=== PATIENT | male | born 1990 | race African-American/Black ===

== ENCOUNTER 2017-09-15 17:52 | Emergency (ER) | payer OTHER ==
[2017-09-15 18:04] VITALS: BP 134/71
[2017-09-15] MEDS ORDERED: IBUPROFEN 800 MG TABLET PO STA (18:33)
[2017-09-15] MEDS ORDERED: ONDANSETRON ODT 4 MG TABLET TL STA (18:33)
[2017-09-15] MEDS ORDERED: ONDANSETRON ODT 4 MG TABLET ONE (18:41)
[2017-09-15] MEDS ORDERED: IBUPROFEN 800 MG TABLET PO ONE (18:42)
--- NOTE | 2017-09-15 18:49 | ED Physician Documentation ---
PD HPI URI - Stated complaint Stated Complaint: HOT/COLD/SHAKES - Chief complaint Chief Complaint: General - History obtained from History obtained from: Patient - History of Present Illness Timing - onset: Today Timing duration: Days (1) Timing details: Gradual onset Pain level max: 0 Pain level now: 0 Associated symptoms: Fever (subjective), Chills, Nasal congestion, Rhinorrhea, Sore throat, Dry cough, Other (felt lightheaded earlier today. Also felt nauseated) Contributing factors: Sick contact. No: Travel, Immunocompromised, Unimmunized , COPD / asthma Improves by: Rest Worsened by: Activity, Breathing - Additional information Additional information: also states nausea today. no abd pain. no vomiting. no diarrhea. no headache. Review of Systems Nose: reports: Rhinorrhea / runny nose, Congestion GI: denies: Vomiting Skin: denies: Rash Musculoskeletal: denies: Neck pain, Back pain Neurologic: denies: Headache PD PAST MEDICAL HISTORY - Past Medical History Past Medical History: No - Past Surgical History Past Surgical History: Yes Ortho: Other - Present Medications Home Medications: Ambulatory Orders Medication Instructions Recorded Confirmed Benzonatate [Tessalon Perle] 100 - 200 mg PO TID PRN #30 capsule 09/15/17 Cetirizine HCl/Pseudoephedrine 1 each PO BID PRN #30 tab.er.12h 09/15/17 [Zyrtec-D Tablet] Ondansetron Odt [Zofran] 4 mg TL Q6H PRN #10 tablet 09/15/17 - Allergies Allergies/Adverse Reactions: Allergies Allergy/AdvReac Type Severity Reaction Status Date / Time No Known Drug Allergies Allergy Verified 09/15/17 18:02 - Social History Does the pt smoke?: No Smoking Status: Never smoker Does the pt drink ETOH?: No Does the pt have substance abuse?: No - Immunizations Immunizations are current?: Yes - POLST Patient has POLST: No PD ED PE NORMAL - Vitals Vital signs reviewed: Yes - General General: Alert and oriented X 3, No acute distress - HEENT HEENT: PERRL, Ears normal, Moist mucous membranes, Pharynx benign, Other (mild posterior oropharyngeal erythema without tonsillar exudates. no trismus. ) - Neck Neck: Supple, no meningeal sign, No adenopathy - Cardiac Cardiac: RRR, Strong equal pulses - Respiratory Respiratory: No respiratory distress, Clear bilaterally - Abdomen Abdomen: Soft, Non tender, Non distended - Back Back: No CVA TTP - Derm Derm: Warm and dry, No rash - Neuro Neuro: Alert and oriented X 3 - Psych Psych: Normal mood, Normal affect Results - Vitals Vitals: Vital Signs - 24 hr 09/15/17 17:58 Temperature 36.4 C L Heart Rate 89 Respiratory 16 Rate Blood Pressure 134/71 H O2 Saturation 97 Oxygen O2 Source Room air PD MEDICAL DECISION MAKING - ED course Complexity details: reviewed results, re-evaluated patient, considered differential, d/w patient ED course: Patient is a 26-year-old male who presents to the emergency department what appears to be a viral upper respiratory infection. He is well-appearing, nontoxic. Tolerating p.o. without difficulty. We will continue supportive care and follow-up with his PCP. Abdomen is soft, nontender nondistended. Lungs are clear to auscultation bilaterally. No evidence of pneumonia. Patient counseled regarding signs and symptoms for which I believe and urgent re- evaluation would be necessary. Patient with good understanding of and agreement to plan and is comfortable going home at this time This document was made in part using voice recognition software. While efforts are made to proofread this document, sound alike and grammatical errors may occur. Departure - Departure Disposition: 01 Home, Self Care Clinical Impression: Viral syndrome Condition: Good Instructions: ED Viral Syndrome Follow-Up: TOM RIOS [Primary Care Provider] - Within 1 week Prescriptions: Benzonatate [Tessalon Perle] 100 - 200 mg PO TID PRN #30 capsule PRN Reason: Cough Cetirizine HCl/Pseudoephedrine [Zyrtec-D Tablet] 1 each PO BID PRN #30 tab.er.12h PRN Reason: Nasal Congestion Ondansetron Odt [Zofran] 4 mg TL Q6H PRN #10 tablet PRN Reason: Nausea / Vomiting Comments: Drink plenty of fluids. Return if you worsen. This should improve over the next several days. Discharge Date/Time: 09/15/17 19:03
== END 2017-09-15 19:03 | disposition home or self-care (01) ==
LOC: ED 17:52
DX: B34.9 Viral infection, unspecified (principal)
CPT/HCPCS: 99283; A9270; Q0162; 87275; 87276